=== PATIENT | female | born 1960 | race Hispanic/Latino ===

== ENCOUNTER → 2020-03-30 | Outpatient (CLI) | payer BC | LOC: MAMMO 10:57 | PROVIDERS: ATTEND Internal Medicine | DX: Z12.31 Encounter for screening mammogram for malignant neoplasm of breast (principal) | CPT/HCPCS: 77067 ==

== ENCOUNTER → 2022-12-14 | Outpatient (CLI) | payer BC | LOC: MAMMO 10:32 | PROVIDERS: ATTEND Internal Medicine | DX: Z12.31 Encounter for screening mammogram for malignant neoplasm of breast (principal) | CPT/HCPCS: 77067 ==